=== PATIENT | female | born 1990 | race Caucasian/White ===

== ENCOUNTER 2017-11-26 16:18 | Inpatient (IN) | END 2017-11-29 18:17 | disposition home or self-care (01) | DRG 661 ==

== ENCOUNTER 2018-03-09 12:27 | Emergency (ER) | payer SELFPAY ==
[~2018-03-09] VITALS: Ht 157.5 cm; Wt 85.5 kg
[~2018-03-09 12:27] MED LIST: BISA5TAB6 PO; CIPR500T4 PO; IBUP-1541 PO; TAMS-14 PO
[2018-03-09 12:29] VITALS: BP 124/59; PULSE 91; RESP 20; Ht 157.5 cm; Wt 85.5 kg
== END 2018-03-09 15:24 | disposition left against medical advice (07) ==
LOC: FTE 12:27
DX: Z53.21 Procedure and treatment not carried out due to patient leaving prior to being seen by health care provider (principal)